=== PATIENT | female | born 1985 | race Two or more races ===

== ENCOUNTER 2019-09-08 19:33 | Observation (INO) | payer OTHER ==
[~2019-09-08] VITALS: Ht 152.4 cm; Wt 51.7 kg
[2019-09-08] MEDS ORDERED: RINGERS LACTATED IV SCH (21:01)
[2019-09-08 21:07] VITALS: BP 144/92
[2019-09-08] MEDS ORDERED: RINGERS SOLUTION,LACTATED 1,000 ML IV SCH ×2 (22:09)
== END 2019-09-08 23:35 ==
LOC: EMS 19:39 → INTOOBSV 19:55 → 4S 19:55
PROVIDERS: ADMIT Obstetrics & Gynecology; ATTEND Obstetrics & Gynecology
DX: O32.1XX0 Maternal care for breech presentation, not applicable or unspecified (principal); O26.892 Other specified pregnancy related conditions, second trimester; R10.30 Lower abdominal pain, unspecified; Z3A.26 26 weeks gestation of pregnancy
CPT/HCPCS: 76805; 80307 ×8; 81001; 99284; G0378; J7120

== ENCOUNTER 2023-01-27 08:13 | Emergency (ER) | payer OTHER ==
[~2023-01-27] VITALS: Ht 160 cm; Wt 59.1 kg
[2023-01-27] MEDS ORDERED: ACETAMINOPHEN 500 MG TABLET PO ONE (09:00)
[2023-01-27 09:10] VITALS: BP 137/96; PULSE 68; RESP 16; TEMP 97.7
== END 2023-01-27 09:17 | disposition home or self-care (01) ==
LOC: EMS 08:18
DX: R51.9 Headache, unspecified (principal); V98.8XXA Other specified transport accidents, initial encounter; Y93.89 Activity, other specified; Y92.89 Other specified places as the place of occurrence of the external cause; Y99.8 Other external cause status
CPT/HCPCS: 99282; Z7502; Z7610